=== PATIENT | female | born 1995 | race Caucasian/White ===

== ENCOUNTER 2024-06-16 05:38 | Emergency (ER) | payer BC, SELFPAY ==
[2024-06-16 05:45] VITALS: BP 102/62; PULSE 54; RESP 16; TEMP 36.7; O2SAT 100; BMI 19.6
--- NOTE | 2024-06-16 06:40 | ED.GENADULT ---
HPI - General Adult General Chief complaint: Dizziness/Vertigo Stated complaint: Dizziness/Faint Time Seen by Provider: 06/16/24 06:15 Source: patient Mode of arrival: ambulatory Limitations: no limitations History of Present Illness HPI narrative: 29-year-old female presents the ED with a syncopal episode after using the bathroom. She reports that she is on her 2nd day of her menstrual cycle and does tend to have heavy clots. Has had syncopal episodes before but has no underlying arrhythmia, significant heart disease or seizure disorder. She does report a history of anemia in the past but never that has required treatment. She denies chance of , but is not on any type of control. No chest pain or shortness of breath. Awoke within just a few seconds. No neurological changes. No feelings of head injury, abdominal pain. No recent fever or illness. Did have a vomiting episode x1, no diarrhea or recent constipation. Feeling neurologically normal now but had pretty significant menstrual cramps around the time of the event that have now improved. Reports that her past medical history is benign, no major long-term health problems. No prior gynecological or abdominal surgeries. Allergy to Augmentin. Nonsmoker. ROS notable for the generalized, cardiovascular in menstrual symptoms as above, otherwise denies times 12 systems. Related Data Home Medications ?Medication ?Instructions ?Recorded ?Confirmed ferrous sulfate PO 06/16/24 Allergies Allergy/AdvReac Type Severity Reaction Status Date / Time amoxicillin (From Augmentin) AdvReac Verified 06/16/24 05:49 clavulanic acid (From AdvReac Verified 06/16/24 05:49 Augmentin) PFSH PFSH Social History Smoking Status: Never smoker How often do you have a drink containing alcohol: never AUDIT-C Alcohol total score: 0 Non-prescribed substance use: denies use Exam Const: Vital Signs, click to edit/add: Vital Signs - 24 hr 06/16/24 05:45 Temperature 98.1 F Pulse Rate [Pulse Oximeter] 54 L Respiratory Rate 16 Blood Pressure [Ri ght Upper Arm] 102/62 Pulse Oximetry 100 Oxygen Delivery Me thod Room Air Documenting provider has reviewed patient's vital signs: yes Common normals: no apparent distress and alert General appearance: cooperative, comfortable and well kempt HENMT: Common normals: normocephalic, moist oral mucous membranes, oropharynx normal and dentition normal Head and scalp: normocephalic Other: No signs of tongue biting or seizure Eye: Common normals: PERRL, EOMs intact bilaterally and conjunctivae normal General eye: normal appearance of both eyes Conjunctiva: conjunctiva(e) normal Pupil: PERRL Neck & C-Spine: Common normals: full ROM and no lymphadenopathy General: normal visual inspection Resp: Common normals: normal respiratory effort, no use of accessory muscles and clear to auscultation bilaterally Effort & inspection: able to speak in complete sentences Auscultation: clear to auscultation bilaterally Cardio: Common normals: regular rate, regular rhythm, S1 normal heart sound, S2 normal heart sound and no murmurs Rate: regular rate Rhythm: regular rhythm Heart sounds: S1 normal and S2 normal GI: Common normals: Normal to inspection, nondistended, normoactive bowel sounds present, soft to palpation, non-tender, no hepatosplenomegaly and no masses Palpation: soft and no hepatosplenomegaly Extremity: Common normals: normal to inspection and no pedal edema Neuro: Sensorium/orientation: alert Speech: speech normal Psych: Appearance: well kempt Activity/motor behavior: appropriate eye contact Mood and affect: euthymic mood Skin: Common normals: no rashes or lesions noted General skin exam: no rashes or lesions noted Course Course ED Course: 29-year-old female reporting syncopal episode just prior to arrival. Story is most suspicious for vagal episode associated with large menstrual flow. No signs of persistent hemorrhage. Recommended EKG. Initial vitals are reassuring. Labs to ensure that she is not severely anemic, has significant thyroid disease, electrolyte abnormality, dehydration or other abnormality. Suspected vomiting was related to the vagal episode. Influenza swab as we are seeing quite a bit of this right now also. Does not seem to need IV fluids at this time, will allow oral rehydration and await findings. Reevaluation(s) Time of Reevaluation #1: 08:02 Reevaluation #1: Labs are reassuring. Patient remains asymptomatic. EKG within normal limits, cardiac monitoring has but non revealing. Patient and I discussed her previous syncopal episodes and I do think that she is just unfortunately 1 of those people the naturally runs with a low pulse and blood pressure that is going to be more prone to these vagal episodes. We discussed her menstrual cycles. She is not anemic at this time but I do think she might benefit from 5 days of NSAIDs in a couple of days before her period starts and the 1st few days. Rationale and sources discussed. Aleve once daily for these 5 days recommended. Discussed safety concerns with syncope and how if she feels an episode coming on, she should lower herself to the ground quickly to avoid other injury as a result of the fall. Alarm symptoms reviewed that would warrant ED presentation. Written instructions provided. Discharging home with no changes in typical daily treatment plan. Vital Signs Vital signs: Initial Vital Signs Temperature 98.1 F 06/16/24 05:45 Temperature Source Temporal Artery Scan 06/16/24 05:45 Pulse Rate 54 L 06/16/24 05:45 Respiratory Rate 16 06/16/24 05:45 Blood Pressure 102/62 06/16/24 05:45 Blood Pressure Mean 75 06/16/24 05:45 Blood Pressure Position Sitting 06/16/24 05:45 Pulse Oximetry 100 06/16/24 05:45 Oxygen Delivery Method Room Air 06/16/24 05:45 Vital Signs Temperature 98.1 F 06/16/24 05:45 Pulse Rate 54 L 06/16/24 05:45 Respiratory Rate 16 06/16/24 05:45 Blood Pressure 102/62 06/16/24 05:45 Pulse Oximetry 100 06/16/24 05:45 Oxygen Delivery Method Room Air 06/16/24 05:45 Temperature 98.1 F 06/16/24 05:45 Pulse Rate 54 L 06/16/24 05:45 Respiratory Rate 16 06/16/24 05:45 Blood Pressure 102/62 06/16/24 05:45 Pulse Oximetry 100 06/16/24 05:45 Oxygen Delivery Method Room Air 06/16/24 05:45 Medical Decision Making Lab Data Lab results reviewed: Yes I reviewed the patient's lab results Lab results narrative: Labs reassuring. No severe anemia, signs of significant infection, , dehydration or electrolyte abnormality. Labs: Lab Results 06/16/24 06/16/24 Range/Units 06:58 07:05 WBC 10.31 (4.50-11.00) K/uL RBC 4.34 (4.00-5.20) m/uL Hgb 12.1 (12.0-16.0) gm/dL Hct 36.7 (33.0-51.0) % MCV 85 (80-100) fL MCH 28 (26-34) pg MCHC 33 (32-36) gm/dL RDW Coeff of Alexandru 13.9 (11.5-15.5) % Plt Count 216 (140-440) K/uL Neut % (Auto) 83.0 H (42.0-72.0) % Lymph % (Auto) 9.0 L (20-44) % [place] % (Auto) 6.9 (0.0-11.0) % Eos % (Auto) 0.7 (0.0-7.0) % Baso % (Auto) 0.2 (0.0-3.0) % Neut # (Auto) 8.60 H (1.7-7.0) K/uL Lymph # (Auto) 0.90 (0.90-2.90) K/uL [place] # (Auto) 0.70 (0.00-0.90) K/UL Eos # (Auto) 0.07 (0.00-0.50) K/uL Baso # (Auto) 0.02 (0.00-0.30) K/uL Abs Immat Gran (auto) 0.02 (0.00-0.30) K/uL Imm/Tot Granulo (auto) 0.2 % Sodium 138 (135-149) mmol/L Potassium 4.0 (3.6-5.1) mmol/L Chloride 106 (96-114) mmol/L Carbon Dioxide 24 (20-32) mmol/L Anion Gap 8 (7-15) mEq/L BUN 17 (5-24) mg/dL Creatinine 0.7 (0.5-1.5) mg/dL Estimated Creat Clear 104.23 Estimated GFR 119 ml/min Glucose 93 (60-115) mg/dL Calcium 8.8 (8.4-10.6) mg/dL C-Reactive Protein < 0.5 L (0.5-1.0) mg/dL HCG, Qual Negative (Negative) SARS-CoV-2 (PCR) Negative SARS-CoV-2 (Negative) Influenza Type A (PCR) Negative PCR FLU A (Negative) Influenza Type B (PCR) Negative PCR FLU B (Negative) RSV (PCR) Negative PCR RSV (Negative) ECG Data Attestation: I personally reviewed and interpreted this ECG as follows: Prior ECG tracings: not available for review Interpretation: Sinus rhythm, rate of 68. No significant ST or T-wave abnormalities. Normal intervals and axis. Discharge Plan Discharge Clinical Impression: Vaso vagal episode Patient Disposition: Home w/ Parent or Adult Condition: Improved Instructions: Syncope (DC) Additional Instructions: As we discussed, it seems as though this episode was caused by a vagal episode, this is a sudden drop in heart rate and blood pressure in response to different conditions. My guess is yours was triggered by your sudden heavy menstrual flow. Thankfully, there were no signs of complications with your heart, electrolytes, other blood work. Your hemoglobin is pretty stable, not quite anemic but certainly not in need of intervention right now. As we discussed, you may benefit from using NSAIDs for the 5 days surrounding the start of your menstrual cycle. I would recommend that you start taking the medication 1-2 days before your menses Starts and continue it for the 1st 3 days of your period. This helps reduce some of the hormonal component to the heavy menstrual flow and can lighten the intense cramping for some. I recommend Aleve 1 tablet [id number] once daily for each of these 5 days. Unfortunately, with her history, your someone who is likely to have more syncopal episodes. These may be hard to prevent so it is important that if you have sudden onset of lightheaded and dizziness, especially when on your. , when having bowel movements, etc., that you sit down or lower your self safely to the ground immediately. You risk more injury if you fall from standing height. Please come back to the emergency department if you have severe symptoms. No restrictions at this time. Activity Level: No Restrictions Discharge Diet: Regular Prescriptions: No Action ferrous sulfate [Iron (ferrous sulfate)] PO Follow Up/Referrals: Provider,Not a Local [Primary Care Provider] - Stand Alone Forms: [facility] Info Instructions
--- OUTSIDE RECORDS SUMMARY | 2024-06-16 06:46 | XMS_ITS | Clinical Summary ---
Author Organization [email or web address] Address [place], [place] [address] Care Team Providers Care Director Of Outreach Name Role Phone Pcp, No Primary Care Provider Unavailabl e Allergies Active Allergy Reactions Criticality Noted Date Comments Amoxicillin-Pot Clavulanate Rash 12/01/19 08 Medications No known medications Active Problems Problem Noted Date Diagnosed Date Blastocystis hominis 03/20/2022 LGSIL of cervix of undetermined significance 05/2020 Overview (04/24/2022): 05/29/2020: LSIL 06/18/2020: [place] - OPAL 1 03/20/2022: NIL/HPV negative Plan: Pap and HPV in 3 years. Routine child health exam 03/08/2013 Immunizations Name Administration Dates Next Due DTP 06/14/2003, 9,08/04/1994,11/04,1993 HIB PRP-T (ActHIB,Hiberix) 09/17/1994,,1993,06/14 Hepatitis A (Adult) 03/08/2013 Hepatitis A (Peds) 11/12/2011 Hepatitis B (Peds) 08/13/1999,02/06/1999, 999 Human Papilloma Virus Vaccine 05/06/2012, 012,11/12/2011 Inactivated Polio Vaccine 01/04/1999,,1993,06/14 Influenza A (H1N1), Inactiva katy (Age 6-35 Mos) 04/10/2009 Influenza Virus, Unspecified 02/15/2009 Influenza, IIV3 (Age >=3 years) 02/27/20 22,02/25/2010,02/15/2009,04/18,03/12/2005 Influenza, IIV4 03/28/2021,,02/16/2018,02/04,02/04/2016,01/23/2013 Influenza, IIV4 (Age 6-35 Mos) 01/23/2013 MENINGOCOCCAL VACCINE 2 VIAL 2MO-55YO (MENVEO) 11/12/2011 MMR 01/04/1999,08/04/1994 TD, UNSPECIFIED 09/23/2005 Td (Age >=7 Years) 03/20/2022,09/23/2005 Tdap 11/12/2011,09/23/2005 Family History Medical History Relation Name Comments Other Brother congenital hear t defect - transposition of great arteries Atrial fibrillation Father Diabetes Maternal Grandfather Dementia Maternal Grandmother Hyperlipidemia Mother Lung cancer Paternal Grandfather worked in construction Cancer-breast Paternal Grandmother Stroke Paternal Grandmother Relation Name Status Comments Brother Alive Father Alive Maternal Grandfather Maternal Grandmother Alive Mother Alive Paternal Grandfather Paternal Grandmother Alive Social History Tobacco Use Types Packs/Day Years Used Date Smoking Tobacco: Never Smokeless Tobacco: Never Tobacco Cessation:Counseling Given: Yes Alcohol Use Standard Drinks/Week Comments Not Currently 0 (1 standard drink = 0.6 oz pur e alcohol) really rarely PHQ-2 Answer Date Recorded PHQ-2 TOTAL SCORE 0 03/20/2022 Social Connections Answer Date Recorded Frequency of Communication with Friends and Fami ly Not on file 05/18/2021 Financial Resource Strain Answer Date R ecorded Difficulty of Paying Living Expenses Not on file 05/18/2021 Difficulty of Paying Living Expenses Not on file 05/18/2021 Comments No Sex and Gender Information Value Date Recorded Sex Assigned at Not on file Legal Sex Female 5:26 AM WOOL BRUSHER Gender Identity Not on file Sexual Orientation Not on file Obstetrics History Para Term AB IAB SAB Ectopic Multiple Livin g Live Births 0 0 0 0 0 0 0 0 0 0 Last Filed Vital Signs Vital Sign Reading Time Taken Comments Blood Pressure 110/82 03/20/2022 9:37 AM CDT Pulse 64 03/20/2022 9:37 AM CDT Temperature 36.8 C (98.3 F) 11/08/2014 9:22 AM CDT Respiratory Rate - - Oxygen Saturation 100% 06/18/2020 8:04 AM WOOL BRUSHER Inhaled Oxygen Concentration - - Weight 60.8 kg (134 lb) 03/20/2022 9:37 AM CDT Height 172.7 cm (5' 8) 03/20/2022 9:37 AM CDT Body Mass Index 20.37 03/20/2022 9:37 AM CDT Plan of Treatment Health Maintenance Due Date Last Done Comments HIV for age 15-65 2008 BMI (ht and wt on same day) for age 18+ 03/20/2023 03/20/2022, 06/18/2020, 05/29/2020 Depression screening for age 12+ 03/20/2023 03/20/2022, 03/20/2022, 05/31/2020, Additional history exists COVID-19 vaccine series ( season) 2024 02/26/2022, 04/26/2021, 10/12/2020, Additional history exists Influenza for age 9-49 01/17/2024 , 03/28/2021, 05/29/2020, Additional history exists Pap test for age 21-65 03/20/2025 , 03/20/2022, 05/29/2020 Tetanus booster 03/20/2032 03/20/2022, 10/17, 09/23/2005, Additional history exists Tdap Completed 11/12/2011, 09/23/2005 Hepatitis C screening for age 18-79 Completed 03/20/2022 Pneumococcal series for age 6-49 Aged Out No longer eligible based on patient's age to complete this topic Procedures Procedure Name Priority Date/Time Associated Diagnosis Comments OVERNIGHT ASSOCIATE THIN PREP PAP SCREEN IMAGED Routine 03/20/2022 10:57 AM CDT Screening for cervical cancer ANTI HCV Routine 03/20/2022 10:54 AM CDT Need for hepatitis C screening test from Last 3 Months or Most Recently Relevant to Health Maintenance Results * OVERNIGHT ASSOCIATE THIN PREP PAP SCREEN IMAGED [[id number]] (03/20/2022 10:57 AM CDT) Case Report Gynecologic Cytology Report Case: [id number] Authorizing Provider: Fernanda Maldonado, Collected: 03/20/2022 1057 PA Ordering Location: [facility] Received: 03/20/2022 1057 [facility] First Screen: Zarina Sim Rescreen: [place] Faith Specimen: OVERNIGHT ASSOCIATE ThinPrep Vial Screening, Cervical 04/18/2022 11:55 AM WOOL BRUSHER [facility] INTERPRETATION/ RESULT NEGATIVE FOR INTRAEPITHELIAL LESION OR MALIGNANCY (NIL) (none) 04/18/2022 11:55 AM WOOL BRUSHER [facility] IMEN ADEQUACY Satisfactory for evaluation Endocervical component present 04/18/2022 11:55 AM WOOL BRUSHER [facility] HPV REQUEST HPV and PAP 04/18/2022 11:55 AM WOOL BRUSHER [facility] Date of LMP 03/15/22 04/18/2022 11:55 AM WOOL BRUSHER [facility] Last Pap Date 05/29/20 04/18/2022 11:55 AM WOOL BRUSHER [facility] Last Pap Result LSIL 11:55 AM WOOL BRUSHER [facility] Abnormal Pap or [place] Bx in last 5 years Yes 04/18/2022 11:55 AM WOOL BRUSHER [facility] Menstrual Status Regular Periods 04/18/2022 11:55 AM WOOL BRUSHER [facility] [place] Bx Done Today No 04/18/2022 11:55 AM WOOL BRUSHER [facility] Additional Information None given 04/18/2022 11:55 AM WOOL BRUSHER [facility] Comment: Cytology is screened at [facility], [facility] Laboratory - [address], [place] [address] and [facility] - [address] [place] [address], [place] [address] and [facility] - [address] [place] [address] Interpreted at [facility], Central Laboratory - [address], [place] [address] Automated Review Successful 04/18/2022 11:55 AM WOOL BRUSHER [facility] Comment:Specimen processed s uccessfully by automated corporate compliance officer device, [employer] Imaging System, [employer] ANCILLARY TESTING OVERNIGHT ASSOCIATE HPV Ordered, Please see separate report 04/18/2022 11:55 AM WOOL BRUSHER [facility] Note The pap test is a screening technique, not a diagnostic procedure. It is used primarily to screen for squamous cancers and precursor lesions. Published studies have shown that it is subject to both false negative and false positive results. The pap test should not be used as the sole means to diagnose or exclude pre-malignant and malignant lesions. 04/18/2022 11:55 AM WOOL BRUSHER [facility] Other (Cervical) Non-Blood / Unknown 03/20/2022 10:57 AM CDT 03/20/2022 10:57 AM CDT us Fernanda MYESR PATHOLOGY/CYTOLOGY Final Result [facility] [address] [place] [address], [place] * ANTI HCV (03/20/2022 10:54 AM CDT) HEPATITIS C ANTIBODY Non-React bonifacio Non-React bonifacio 03/21/2022 10:42 AM CDT [facility] Comment:Antibodies to HCV no t detected; does not exclude the possibility of exposure to HCV. Blood BLOOD SPECIMEN / Unknown Venipuncture / Unknown 03/20/2022 10:54 AM CDT 03/20/2022 10:54 AM CDT us Fernanda MYERS SEND OUTS Fin al Result [facility] [address] [place] [address], from Last 3 Months or Most Recently Relevant to Health Maintenance Additional Health Concerns Infection Onset Date Last Indicated Rule-Out C.diff 05/31/2020 05/31/2020 Insurance [facility] Care Teams Director Of Outreach Relationship Specialty Start Date End Date Pcp, No . PCP - General 05/24/24
[2024-06-16 07:14] LABS: Basophils Absolute Auto 0.02 K/uL (0.00-0.30); Basophils Percent Auto 0.2 % (0.0-3.0); Eosinophils Absolute Auto 0.07 K/uL (0.00-0.50); Eosinophils Percent Auto 0.7 % (0.0-7.0); Hematocrit* 36.7 % (33.0-51.0); Hemoglobin* 12.1 gm/dL (12.0-16.0); Immature Granulocytes Abs Auto 0.02 K/uL (0.00-0.30); Immature Granulocytes Pct Auto 0.2 %; Mean Corpuscular HGB Conc 33 gm/dL (32-36); Mean Corpuscular Hemoglobin 28 pg (26-34); Mean Corpuscular Volume 85 fL (80-100); Monocytes Percent Auto 6.9 % (0.0-11.0); Platelet Count* 216 K/uL (140-440); RDW Coefficient of Variation % 13.9 % (11.5-15.5); Red Blood Count* 4.34 m/uL (4.00-5.20); White Blood Count* 10.31 K/uL (4.50-11.00)
[2024-06-16 07:18] LABS: Slide Review Reflex No
[2024-06-16 07:26] LABS: Chloride* 106 mmol/L (96-114); Sodium* 138 mmol/L (135-149)
[2024-06-16 07:29] LABS: Anion Gap 8 mEq/L (7-15); Blood Urea Nitrogen* 17 mg/dL (5-24); Carbon Dioxide* 24 mmol/L (20-32); Creatinine* 0.7 mg/dL (0.5-1.5); Est. Creatinine Clearance* 104.23; Estimated Glomerular Filt Rate 119 ml/min
[2024-06-16 07:30] LABS: Calcium* 8.8 mg/dL (8.4-10.6); Glucose* 93 mg/dL (60-115)
[2024-06-16 07:33] LABS: C Reactive Protein* < 0.5 mg/dL (0.5-1.0)
[2024-06-16 07:35] LABS: HCG Qualitative Serum* Negative (Negative)
[2024-06-16 07:56] LABS: PCR FLU A Negative PCR FLU A (Negative); PCR FLU B Negative PCR FLU B (Negative); PCR RSV Negative PCR RSV (Negative); SARS PCR* Negative SARS-CoV-2 (Negative)
[2024-06-16 08:01] VITALS: BP 107/58; PULSE 77; RESP 16; O2SAT 100
== END 2024-06-16 08:06 | disposition home or self-care (01) ==
PROVIDERS: Emergency Provider Family Medicine
DX: R55 Syncope and collapse (principal)
CPT/HCPCS: 36415; 80048; 84443; 84703; 85025; 86140; 87637; 93005; 99283; 99284